=== PATIENT | female | born 1950 | race Caucasian/White ===

== ENCOUNTER 2018-04-21 22:34 | Inpatient (IN) | payer OTHER ==
[~2018-04-21] VITALS: Ht 157.5 cm; Wt 106.6 kg
[2018-04-21 22:36] VITALS: Ht 157.5 cm; Wt 106.6 kg
[2018-04-21 23:38] LABS: PLATELET COUNT 133 x10^3mcL (130-400)
[2018-04-21 23:42] LABS: RED CELL DISTRIBUTION WIDTH 25.3 % (11.5-14.5)
[2018-04-21 23:57] LABS: CALCIUM 9.2 mg/dL (8.5-10.1); CARBON DIOXIDE 20.6 mmol/L (21-32); CREATININE SERUM 1.6 mg/dL (0.6-1.0)
[2018-04-22] VITALS (7 sets, daily range): BP systolic 68–162; BP diastolic 39–108
[2018-04-22 00:04] LABS: BAND NEUTROPHIL 36 % (0-10); MONOCYTE 2 % (0-7); SEGMENTED NEUTROPHILS 60 % (37-75); rbc morphology (normal/abnorm) ABNORMAL (NORMAL)
[2018-04-22 00:05] LABS: ALBUMIN 3.4 g/dL (3.4-5.0); FREE T4 0.33 ng/dL (0.76-1.46); TOTAL PROTEIN, SERUM 6.9 g/dL (6.4-8.2)
[2018-04-22 00:38] LABS: UA SPECIFIC GRAVITY >=1.030 (1.005-1.035); microscopic required? YES; urine erythrocyte NEGATIVE (NEGATIVE)
[2018-04-22 03:03] LABS: AMPHETAMINE QUAL UR NONE DETECTED (See below)
[2018-04-22 04:22] LABS: MAGNESIUM 1.9 mg/dL (1.8-2.4); PHOSPHOROUS 4.1 mg/dL (2.5-4.9)
[2018-04-22 04:30] LABS: CHOLESTEROL/HDL RATIO 17.4
[2018-04-22 06:05] LABS: CARBON DIOXIDE 22.9 mmol/L (21-32); CREATININE SERUM 1.5 mg/dL (0.6-1.0); POTASSIUM SERUM 4.2 mmol/L (3.5-5.1)
[2018-04-22 06:10] LABS: BASOPHIL % 0.3 % (0-2)
[2018-04-22 06:12] LABS: PLATELET COUNT 113 x10^3mcL (130-400); RED CELL DISTRIBUTION WIDTH 25.7 % (11.5-14.5)
[2018-04-22 16:29] LABS: SOURCE FLUID THORACENTESIS
== END 2018-04-22 20:07 | disposition expired | DRG 871 ==
LOC: ED 22:34 → IC 04-22 00:33
PROVIDERS: Emergency Medicine; Family Medicine
PROC: 5A1935Z Respiratory Ventilation, Less than 24 Consecutive Hours (ICD-10-PCS; principal; 2018-04-22)
PROC: 0BH17EZ Insertion of Endotracheal Airway into Trachea, Via Natural or Artificial Opening (ICD-10-PCS; 2018-04-22)
PROC: 05HM33Z Insertion of Infusion Device into Right Internal Jugular Vein, Percutaneous Approach (ICD-10-PCS; 2018-04-22)
PROC: B543ZZA Ultrasonography of Right Jugular Veins, Guidance (ICD-10-PCS; 2018-04-22)
PROC: 0W9B3ZZ Drainage of Left Pleural Cavity, Percutaneous Approach (ICD-10-PCS; 2018-04-22)
DX: A41.9 Sepsis, unspecified organism (principal); J69.0 Pneumonitis due to inhalation of food and vomit; N17.0 Acute kidney failure with tubular necrosis; I50.43 Acute on chronic combined systolic (congestive) and diastolic (congestive) heart failure; E43 Unspecified severe protein-calorie malnutrition; J96.01 Acute respiratory failure with hypoxia; R65.21 Severe sepsis with septic shock; N39.0 Urinary tract infection, site not specified; D68.9 Coagulation defect, unspecified; J90 Pleural effusion, not elsewhere classified; I42.9 Cardiomyopathy, unspecified; R57.0 Cardiogenic shock; D75.1 Secondary polycythemia; H10.9 Unspecified conjunctivitis; E80.6 Other disorders of bilirubin metabolism; R74.0 Nonspecific elevation of levels of transaminase and lactic acid dehydrogenase [LDH]; Z51.5 Encounter for palliative care; L89.152 Pressure ulcer of sacral region, stage 2; D69.6 Thrombocytopenia, unspecified; K76.0 Fatty (change of) liver, not elsewhere classified; I35.0 Nonrheumatic aortic (valve) stenosis; I34.0 Nonrheumatic mitral (valve) insufficiency; I36.1 Nonrheumatic tricuspid (valve) insufficiency; N18.3 Chronic kidney disease, stage 3 (moderate); I37.1 Nonrheumatic pulmonary valve insufficiency
CPT/HCPCS: 32555; 36600; 83880; 84439; 87804; A4628; C1729; J0295; J1642; J1940; J1956; J2001; J2060; J2250; J2270; J2543; J2704; J3010; J3370; J3490; J7030; J7040; J7050; J7620; Q0092